=== PATIENT | female | born 1950 | race Hispanic/Latino ===

== ENCOUNTER 2016-11-13 11:28 | Outpatient (CLI) | payer MEDICARE ==
--- NOTE | 2016-11-13 11:56 | XRay Report ---
Left hip: Pain. The hip joint is well-preserved and there is good alignment. The bones appear slightly decreased in mineralization. An AP view of the pelvis is generally unremarkable although the lower 2 lumbar segments are difficult to assess. Impression: Normal left hip.
== END 2016-11-13 11:29 | disposition home or self-care (01) ==
LOC: XRAY 11:28 → SPVIMAG 11:28
PROVIDERS: ATTEND Orthopaedic Surgery Sports Medicine
DX: M25.552 Pain in left hip (principal)